=== PATIENT | female | born 1970 | race Caucasian/White ===

== ENCOUNTER 2020-09-26 12:19 | Inpatient (IN) | payer OTHER ==
[~2020-09-26] VITALS: Ht 160 cm; Wt 91.6 kg
[2020-09-26 13:41] LABS: BASOPHIL 0 % (0-2); EOSINOPHIL 0 % (0-5); HCT 38.7 % (37.0-47.0); HGB 12.7 g/dl (12.5-16.0); MCH 29.2 pg (25.0-31.0); MCHC 32.8 g/dL (32.0-36.0); MONOCYTE 6.6 % (0-12); MPV 9.8 fL (6.0-9.5); NEUTROPHIL 75.1 % (41-80); NRBC 0; PLT 141 K/uL (150-400); RBC 4.35 M/uL (4.20-5.40); RDW 14.4 % (11.5-14.0); WBC 3.9 K/uL (4.0-10.5)
[2020-09-26 13:55] LABS: ALBUMIN 3.4 g/dL (3.4-5.0); BUN/CREAT RATIO (CALC) 15.2 RATIO; CREATININE 0.46 mg/dL (0.51-0.95); GLOBULIN (CALCULATION) 3.8 g/dL; POTASSIUM 3.3 mmol/L (3.5-5.1); TOTAL PROTEIN 7.2 g/dL (6.4-8.2)
[2020-09-26 14:19] LABS: INFLUENZA A NAA NEGATIVE (NEGATIVE)
[2020-09-26 14:23] LABS: CORONAVIRUS 2019 SARS-COV-2 POSITIVE (NEGATIVE)
[2020-09-27 06:26] LABS: BASOPHIL 0.3 % (0-2); EOSINOPHIL 0.3 % (0-5); HCT 35.1 % (37.0-47.0); HGB 11.3 g/dl (12.5-16.0); LYMPHOCYTE 25.2 % (15-48); MCH 29.4 pg (25.0-31.0); MCHC 32.2 g/dL (32.0-36.0); MCV 91.4 fL (78.0-100.0); MONOCYTE 7.1 % (0-12); MPV 10.2 fL (6.0-9.5); NEUTROPHIL 65.8 % (41-80); NRBC 0; PLT 133 K/uL (150-400); RBC 3.84 M/uL (4.20-5.40); RDW 14.8 % (11.5-14.0); WBC 3.9 K/uL (4.0-10.5)
[2020-09-27 06:38] LABS: BUN/CREAT RATIO (CALC) 20.8 RATIO; CREATININE 0.53 mg/dL (0.51-0.95); POTASSIUM 3.6 mmol/L (3.5-5.1)
[2020-09-28 07:26] LABS: BASOPHIL 0.3 % (0-2); EOSINOPHIL 0 % (0-5); HCT 36.3 % (37.0-47.0); HGB 11.7 g/dl (12.5-16.0); LYMPHOCYTE 31.5 % (15-48); MCH 28.9 pg (25.0-31.0); MCHC 32.2 g/dL (32.0-36.0); MCV 89.6 fL (78.0-100.0); MONOCYTE 9.1 % (0-12); MPV 9.5 fL (6.0-9.5); NEUTROPHIL 56.8 % (41-80); NRBC 0; PLT 173 K/uL (150-400); RBC 4.05 M/uL (4.20-5.40); RDW 14.5 % (11.5-14.0)
[2020-09-28 07:50] LABS: BUN/CREAT RATIO (CALC) 27.5 RATIO; CREATININE 0.4 mg/dL (0.51-0.95); POTASSIUM 3.5 mmol/L (3.5-5.1)
[2020-09-29 07:04] LABS: BASOPHIL 0.2 % (0-2); EOSINOPHIL 0 % (0-5); HCT 35.8 % (37.0-47.0); HGB 11.6 g/dl (12.5-16.0); MCHC 32.4 g/dL (32.0-36.0); MCV 89.5 fL (78.0-100.0); MONOCYTE 7.9 % (0-12); MPV 9.8 fL (6.0-9.5); NEUTROPHIL 62.3 % (41-80); NRBC 0; PLT 214 K/uL (150-400); RDW 14.2 % (11.5-14.0)
[2020-09-29 07:07] LABS: WBC 4.3 K/uL (4.0-10.5)
[2020-09-29 07:34] LABS: BUN/CREAT RATIO (CALC) 27.9 RATIO; CREATININE 0.43 mg/dL (0.51-0.95); POTASSIUM 3.7 mmol/L (3.5-5.1)
[2020-10-01 07:50] LABS: BASOPHIL 0.5 % (0-2); EOSINOPHIL 0.7 % (0-5); HCT 37.7 % (37.0-47.0); HGB 12.2 g/dl (12.5-16.0); LYMPHOCYTE 37.3 % (15-48); MCH 28.8 pg (25.0-31.0); MCHC 32.4 g/dL (32.0-36.0); MCV 89.1 fL (78.0-100.0); MONOCYTE 7.6 % (0-12); MPV 9.5 fL (6.0-9.5); NEUTROPHIL 49.7 % (41-80); NRBC 0; PLT 258 K/uL (150-400); RBC 4.23 M/uL (4.20-5.40); RDW 14.2 % (11.5-14.0); WBC 5.7 K/uL (4.0-10.5)
[2020-10-01 08:10] LABS: BUN/CREAT RATIO (CALC) 25.5 RATIO; CREATININE 0.47 mg/dL (0.51-0.95); POTASSIUM 3.4 mmol/L (3.5-5.1)
--- NOTE | 2020-10-02 15:04 | NUR ---
PER DR. AGUIRRE PT. IS DISCHARGING HOME THIS DATE AND WILL NEED HOME O2. SPOKE WITH PT BY PHONE. SHE REQUESTED [facility] FOR PORTABLE AND HOME O2. PT WILL HAVE NO OTHER NEEDS.
[2020-10-02] MEDS ORDERED: DEXAMETHASONE 2M2 MG PO (15:35)
== END 2020-10-02 18:00 | disposition home or self-care (01) | DRG 177 ==
LOC: FER 12:19 → FMS 15:45
PROVIDERS: Nurse Practitioner; Nurse Practitioner Family; ADMIT Internal Medicine
PROC: XW033E5 Introduction of Remdesivir Anti-infective into Peripheral Vein, Percutaneous Approach, New Technology Group 5 (ICD-10-PCS; principal; 2020-09-26)
PROC: 8E0ZXY6 Isolation (ICD-10-PCS; 2020-09-26)
PROC: XW0DXM6 Introduction of Baricitinib into Mouth and Pharynx, External Approach, New Technology Group 6 (ICD-10-PCS; 2020-09-27)
DX: U07.1 COVID-19 (principal); J96.01 Acute respiratory failure with hypoxia; J12.82 Pneumonia due to coronavirus disease 2019; E11.9 Type 2 diabetes mellitus without complications; E03.9 Hypothyroidism, unspecified; E87.6 Hypokalemia; L40.9 Psoriasis, unspecified; Z90.49 Acquired absence of other specified parts of digestive tract; Z90.89 Acquired absence of other organs; Z79.84 Long term (current) use of oral hypoglycemic drugs; Z79.890 Hormone replacement therapy
CPT/HCPCS: 36415; 36600; 71045; 80048; 80053; 82803; 82962; 83605; 83735; 85025; 94010; 94640; 94667; 94668; C9399; J0456; J0696; J1100; J1650; J1885; J7050; J8540; U0002